=== PATIENT | female | born 1990 | race Caucasian/White ===

== ENCOUNTER → 2023-04-05 12:30 | Outpatient (REF) | payer OTHER, SELFPAY | LOC: RCS 12:30 | PROVIDERS: ATTENDING PHYSICIAN Nurse Practitioner Psychiatric/Mental Health; FAMILY PHYSICIAN Family Medicine | DX: Z79.899 Other long term (current) drug therapy (principal) | CPT/HCPCS: 93005 ==

== ENCOUNTER → 2024-01-11 15:47 | Outpatient (REF) | payer OTHER, SELFPAY | LOC: HWRCS 15:47 | PROVIDERS: ATTENDING PHYSICIAN Internal Medicine Cardiovascular Disease; FAMILY PHYSICIAN Physician Assistant Medical | DX: R00.2 Palpitations (principal) | CPT/HCPCS: 93306 ==

== ENCOUNTER → 2024-01-12 14:16 | Outpatient (REF) | payer OTHER, SELFPAY | LOC: RCS 14:16 | PROVIDERS: ATTENDING PHYSICIAN Internal Medicine Cardiovascular Disease; FAMILY PHYSICIAN Physician Assistant Medical | DX: R00.2 Palpitations (principal) | CPT/HCPCS: 93017 ==

== ENCOUNTER → 2024-07-13 12:28 | Outpatient (REF) | payer OTHER, SELFPAY | LOC: RAD 12:28 | PROVIDERS: ATTENDING PHYSICIAN Physician Assistant Medical | DX: M54.2 Cervicalgia (principal); M54.12 Radiculopathy, cervical region | CPT/HCPCS: 72050 ==

== ENCOUNTER → 2024-07-24 17:07 | Outpatient (REF) | payer OTHER, SELFPAY | LOC: RAD 17:07 | PROVIDERS: ATTENDING PHYSICIAN Physician Assistant Medical | DX: M54.6 Pain in thoracic spine (principal) | CPT/HCPCS: 72072 ==

== ENCOUNTER → 2024-09-01 11:30 | Outpatient (REF) | payer OTHER, SELFPAY | LOC: PAVMRI 11:30 | PROVIDERS: ATTENDING PHYSICIAN Physician Assistant Medical | DX: Q76.5 Cervical rib (principal); M54.12 Radiculopathy, cervical region; M54.2 Cervicalgia | CPT/HCPCS: 72141 ==

== ENCOUNTER → 2024-10-05 16:21 | Outpatient (REF) | payer OTHER, SELFPAY | LOC: RAD 16:21 | PROVIDERS: FAMILY PHYSICIAN Physician Assistant Medical | DX: M79.671 Pain in right foot (principal) | CPT/HCPCS: 73630 ==

== ENCOUNTER → 2024-12-13 18:51 | Outpatient (REF) | payer MEDICARE, OTHER, SELFPAY | LOC: PAVMRI 18:51 | PROVIDERS: ATTENDING PHYSICIAN Podiatrist; FAMILY PHYSICIAN Physician Assistant Medical | DX: G57.51 Tarsal tunnel syndrome, right lower limb (principal) | CPT/HCPCS: 73718; 73721 ==

== ENCOUNTER 2024-12-31 12:58 | Outpatient (RCR) | payer MEDICARE, OTHER, SELFPAY ==
[2024-12-31 13:20] VITALS: BP 107/70
[2024-12-31] MEDS: INJECTAFER 265 MG IV (13:29)
[2024-12-31 13:32] VITALS: BMI 42.2
[2024-12-31 14:35] VITALS: BP 126/72
== END 2025-01-02 15:00 | disposition home or self-care (01) ==
LOC: OID 12:58
PROVIDERS: ATTENDING PHYSICIAN Registered Nurse Critical Care Medicine; FAMILY PHYSICIAN Physician Assistant Medical
DX: D50.9 Iron deficiency anemia, unspecified (principal); R79.0 Abnormal level of blood mineral
CPT/HCPCS: 96365; J1439

== ENCOUNTER 2025-01-07 13:01 | Outpatient (RCR) | payer MEDICARE, OTHER, SELFPAY ==
[2025-01-07 13:13] VITALS: BP 126/69
[2025-01-07] MEDS: INJECTAFER 265 MG IV (13:33)
[2025-01-07 14:29] VITALS: BP 133/78
== END 2025-01-08 09:22 | disposition home or self-care (01) ==
LOC: OID 13:01
PROVIDERS: ATTENDING PHYSICIAN Registered Nurse Critical Care Medicine; FAMILY PHYSICIAN Physician Assistant Medical
DX: D50.9 Iron deficiency anemia, unspecified (principal); R79.0 Abnormal level of blood mineral; E53.8 Deficiency of other specified B group vitamins; E55.9 Vitamin D deficiency, unspecified; R41.89 Other symptoms and signs involving cognitive functions and awareness
CPT/HCPCS: 96365; J1439